=== PATIENT | female | born 2000 | race Caucasian/White ===

== ENCOUNTER 2019-10-01 20:06 | Emergency (ER) | payer MEDICAID ==
[~2019-10-01] VITALS: Ht 167.6 cm; Wt 70.8 kg
[2019-10-01 20:20] VITALS: BP 116/69
--- NOTE | 2019-10-01 20:25 | NUR ---
PT AMBULATED TO BED #6
--- NOTE | 2019-10-01 20:30 | NUR ---
19 Y/O PRESENTS TO ER WITH C/O HEADACHE X 4 DAYS. 10 PAIN. PT STATES SHE HAS HAD A HEADACHE WITH NAUSEA, VOMITING, LIGHT SENSITIVITY, AUDITORY SENSITIVITY, AND SMELL SENSITIVITY. DENIES SOB, COUGH, CONTACT WITH KNOWN COVID + PT. LMP 09/15/19. LAST TOOK IBU 600MG AT 10 AM, AND 2HRS AGO, AND NAPROXEN 250MG @ 1600 TODAY. SIDE RAIL X1, BED IN LOW POSITION, WILL CONTINUE TO MONITOR. DENIES PMH NKDA
--- NOTE | 2019-10-01 20:41 | NUR ---
Dr. Mabry examining patient.
[2019-10-01] MEDS ORDERED: METOCLOPRAMIDE 10 MG/2 ML INJ VIAL IVP ONE (20:50)
[2019-10-01] MEDS ORDERED: KETOROLAC 15 MG/ML VIAL IVP ONE (20:50)
[2019-10-01] MEDS ORDERED: NACL 0.9% 1,000 ML IV ONE (20:50)
[2019-10-01] MEDS ORDERED: diphenhydrAMINE 50 MG/ML VIAL IVP ONE (20:50)
[2019-10-01 21:10] LABS: BASOPHILS # (AUTO) 0.1 K/uL (0.00-0.22); BASOPHILS % (AUTO) 0.7 % (0.0-2.0); EOSINOPHILS % (AUTO) 0.6 % (0.0-4.0); HEMATOCRIT 38.5 % (36-48); HEMOGLOBIN 12.4 g/dL (12.0-16.0); LYMPHOCYTES # (AUTO) 1.9 K/uL (2.5-16.5); LYMPHOCYTES % (AUTO) 22.6 % (20.5-51.1); MEAN CORPUSCULAR HEMOGLOBIN 29 pg (27-31); MEAN CORPUSCULAR HGB CONC 32 g/dL (33-37); MEAN CORPUSCULAR VOLUME 88.6 fL (80-94); MONOCYTES # (AUTO) 0.4 K/uL (0.8-1.0); MONOCYTES % (AUTO) 5.4 % (1.7-9.3); NEUTROPHILS # (AUTO) 5.8 K/uL (1.8-7.7); NEUTROPHILS % (AUTO) 70.7 % (42.2-75.2); PLATELET COUNT (AUTO) 251 K/uL (140-450); RED BLOOD CELL COUNT(AUTO) 4.35 MIL/uL (4.20-5.40); RED CELL DISTRIBUTION WIDTH 14.7 % (11.6-13.7); WHITE BLOOD COUNT (AUTO) 8.2 K/uL (4.5-11.0)
[2019-10-01 23:01] VITALS: BP 116/69
--- NOTE | 2019-10-01 23:02 | NUR ---
Patient discharged with v/s stable. Written and verbal after care instructions given and explained. Patient verbalized understanding. Ambulatory with steady gait. All questions addressed prior to discharge. Advised to follow up with PMD.
== END 2019-10-01 23:02 | disposition home or self-care (01) ==
LOC: MED 20:06
DX: R51 Headache (principal); D64.9 Anemia, unspecified
CPT/HCPCS: 36415; 81002; 81025; 85025; 96361; 96374; 96375; 99284; J1200; J1885; J2765; J7030

== ENCOUNTER 2019-10-03 20:44 | Emergency (ER) | payer MEDICAID ==
[~2019-10-03] VITALS: Ht 167.6 cm; Wt 70.3 kg
[2019-10-03 20:49] VITALS: BP 122/83
--- NOTE | 2019-10-03 20:54 | NUR ---
PT AMBULATED TO LOBBY TO A/W BED
--- NOTE | 2019-10-03 21:11 | NUR ---
PT AMBULATED TO CHAIR C
--- NOTE | 2019-10-03 21:18 | NUR ---
PT ASSESSMENT COMPLETE. PT SEATED IN CHAIR C TO A/W EVAULATION.
[2019-10-03] MEDS ORDERED: METOCLOPRAMIDE 10 MG TAB PO ONE (21:40)
--- NOTE | 2019-10-03 22:06 | NUR ---
STREP CULTURES COLLECTED AND WALKED TO LAB.
--- NOTE | 2019-10-03 23:01 | NUR ---
pt resting in gurney, hob elevated , side rail x 1. rr even and unlabored , a/o x4 , vss. pt states reglan medication helped w/ nausea.
--- NOTE | 2019-10-03 23:12 | NUR ---
ERMD AT BEDSIDE
[2019-10-03 23:32] VITALS: BP 125/85
--- NOTE | 2019-10-03 23:32 | NUR ---
Patient discharged with v/s stable. Written and verbal after care instructions given and explained. Patient alert, oriented and verbalized understanding of instructions. Ambulatory with steady gait. All questions addressed prior to discharge. ID band removed. Patient advised to follow up with PMD. Rx of REGLAN given. Patient educated on indication of medication including possible reaction and side effects. Opportunity to ask questions provided and answered.
== END 2019-10-03 23:32 | disposition home or self-care (01) ==
LOC: MED 20:44
DX: J02.8 Acute pharyngitis due to other specified organisms (principal); F41.9 Anxiety disorder, unspecified
CPT/HCPCS: 81025; 87081; 99283; J8597

== ENCOUNTER 2021-11-29 19:42 | Emergency (ER) | payer MEDICAID ==
[~2021-11-29] VITALS: Ht 170.2 cm; Wt 84.4 kg
[~2021-11-29 19:42] MED LIST: NAPR-54 PO
[2021-11-29 20:50] VITALS: BP 126/70
--- NOTE | 2021-11-29 20:55 | NUR ---
PT TO BED 2, REPORT GIVEN TO REVA SHEN.
[2021-11-29] MEDS ORDERED: ACETAMINOPHEN EXTRA STRENGTH 500 MG TAB PO ONE (22:00)
[2021-11-29] MEDS ORDERED: NAPR-54 PO (22:38)
[2021-11-29] MEDS ORDERED: ACET-10509 PO (22:38)
[2021-11-29 22:50] VITALS: BP 126/70
== END 2021-11-29 22:50 | disposition home or self-care (01) ==
LOC: MED 19:42
DX: S00.83XA Contusion of other part of head, initial encounter (principal); X58.XXXA Exposure to other specified factors, initial encounter; Y93.89 Activity, other specified; Y92.89 Other specified places as the place of occurrence of the external cause; Y99.8 Other external cause status
CPT/HCPCS: 70450; 81002; 81025; 99284

== ENCOUNTER 2022-01-15 20:25 | Emergency (ER) | payer MEDICAID ==
[~2022-01-15 20:25] MED LIST changes: +ACET-10509 PO
--- NOTE | 2022-01-15 20:30 | NUR ---
Patient left before triage.
== END 2022-01-15 20:30 | disposition left against medical advice (07) ==
LOC: MED 20:25
DX: M54.9 Dorsalgia, unspecified (principal); Z53.21 Procedure and treatment not carried out due to patient leaving prior to being seen by health care provider

== ENCOUNTER 2023-03-07 08:27 | Emergency (ER) | payer MEDICAID ==
[~2023-03-07] VITALS: Ht 167.6 cm; Wt 72.6 kg
[2023-03-07 08:55] VITALS: BP 128/86; PULSE 62; RESP 18; TEMP 98; O2SAT 98
[2023-03-07] MEDS ORDERED: ZOLP5TAB1 PO (09:12)
[2023-03-07 09:25] VITALS: BP 128/86; PULSE 62; RESP 18; TEMP 98; O2SAT 98
== END 2023-03-07 09:25 | disposition home or self-care (01) ==
LOC: MED 08:27
DX: G47.00 Insomnia, unspecified (principal); R42 Dizziness and giddiness; F43.9 Reaction to severe stress, unspecified; Z79.899 Other long term (current) drug therapy
CPT/HCPCS: 99283